=== PATIENT | male | born 1985 | race Caucasian/White ===

== ENCOUNTER 2024-04-25 11:29 | Emergency (ER) | payer OTHER ==
[~2024-04-25] VITALS: Ht 195.5 cm; Wt 127.0 kg
[~2024-04-25 11:29] MED LIST: 'CLONIDINE0.1 MG PO; ASPIRIN ADULT L81 M2 PO; ATORVASTATIN CA40 M1 PO; LISINOPRIL20 MG PO; NORVASC10 MG PO; VISTARIL25 M2 PO
[2024-04-25] MEDS ORDERED: TRIAMCINOLONE ACETONIDE 40 MG/ML VIAL IM ONE (12:15)
[2024-04-25] MEDS ORDERED: Acetaminophen/Oxycodone 5 MG/325 MG TABLET PO ONE (12:20)
[2024-04-25] MEDS ORDERED: Ketorolac Tromethamine 30 MG/ML VIAL IM ONE (12:20)
[2024-04-25] MEDS ORDERED: cloNIDine Hydrochloride 0.1 MG TAB PO ONE (12:25)
[2024-04-25] MEDS ORDERED: PERCOCET 5-3251 EACH PO (14:12)
== END 2024-04-25 14:14 | disposition home or self-care (01) ==
LOC: ED 11:29
DX: M47.816 Spondylosis without myelopathy or radiculopathy, lumbar region (principal); I10 Essential (primary) hypertension; M51.369 Other intervertebral disc degeneration, lumbar region without mention of lumbar back pain or lower extremity pain; M54.50 Low back pain, unspecified; F17.210 Nicotine dependence, cigarettes, uncomplicated; Z79.899 Other long term (current) drug therapy; Z79.82 Long term (current) use of aspirin